=== PATIENT | male | born 1950 | race Caucasian/White ===

== ENCOUNTER 2020-01-07 07:47 | Outpatient (CLI) | payer BC, SELFPAY ==
[2020-01-07 09:21] LABS: Alanine Aminotransferase 18 U/L (4-50); Albumin Level 4.4 g/dL (3.5-5.1); Alkaline Phosphatase 77 U/L (38-126); Aspartate Amino Transferase 20 U/L (17-59); Bilirubin,Total 0.6 mg/dL (0.2-1.3); Blood Urea Nitrogen 15 mg/dL (9-20); Calcium 9.4 mg/dL (8.4-10.2); Carbon Dioxide 29 mmol/L (22-30); Chloride 104 mmol/L (98-107); Cholesterol 105 mg/dL (0-200); Estimated Glomerular Filt Rate > 60; Glucose 110 mg/dL (75-110); HDL Direct 25 mg/dL; Potassium 4.8 mmol/L (3.4-5.0); Sodium 139 mmol/L (137-145); Triglycerides 75 mg/dL (<150)
[2020-01-07 09:33] LABS: LDL Cholesterol Direct 64 mg/dL
[2020-01-07 09:50] LABS: Free T4 Free Thyroxine 1.14 ng/mL (0.78-2.19)
[2020-01-07 09:52] LABS: Prostate Specific Antigen 2.3 ng/mL (< OR = 4.0)
[2020-01-10 05:44] LABS: Homocysteine 13.1 umol/L (<11.4)
[2020-01-12 23:19] LABS: Vitamin D 1,25 (OH)2 Total 34 pg/mL (18-72); Vitamin D2 1,25 (OH)2 <8 pg/mL; Vitamin D3 1,25 (OH)2 34 pg/mL
== END 2020-01-07 07:48 | disposition home or self-care (01) ==
LOC: ANHLAB 07:49
PROVIDERS: PCP Internal Medicine; Visit Provider Internal Medicine
DX: E55.9 Vitamin D deficiency, unspecified (principal); Z12.5 Encounter for screening for malignant neoplasm of prostate; E78.2 Mixed hyperlipidemia; Z79.899 Other long term (current) drug therapy; R79.89 Other specified abnormal findings of blood chemistry
CPT/HCPCS: 36415; 80053; 80061; 82652; 83036; 83090; 84153; 84439; 84443; G0103

== ENCOUNTER → 2020-07-31 10:35 | Outpatient (CLI) | payer BC, SELFPAY ==
--- NOTE | ~2020-07-31 | CT_ITS ---
EXAMINATION:CT lung screening DATE: 07/31/2020 10:46 INDICATION: Personal history of tobacco dependence. Current smoker with 40 pack year history. TECHNIQUE: Computed tomography (CT) of the chest was performed without intravenous contrast. Automate d exposure control and iterative reconstruction technique were employed. The dose-length product (DLP ) was 145.53 mGy-cm. COMPARISON: CT abdomen and pelvis 10/28/09 FINDINGS: There is mild atelectasis bilaterally. Calcified right lung nodules and calcified right hil ar lymph nodes are consistent with old granulomatous disease. No pleural effusion. The heart size is normal. There are coronary artery calcifications. No pericardial effusion. There is bilateral gynecom astia. There is dextroscoliosis and severe spondylosis of thoracic spine. IMPRESSION: 1. Lung-RADS category 1: Negative. Continue annual screening with noncontrast low-dose chest CT in 12 months. Reviewed, dictated and finalized at location B. [employer] IMPRESSION: 1. Lung-RADS category 1: Negative. Continue annual screening with noncontrast l ow-dose chest CT in 12 months.
== END ==
PROVIDERS: PCP Internal Medicine; Visit Provider Internal Medicine
DX: Z12.2 Encounter for screening for malignant neoplasm of respiratory organs (principal); Z87.891 Personal history of nicotine dependence
CPT/HCPCS: 71271

== ENCOUNTER 2020-11-16 11:02 | Emergency (ER) | payer BC, SELFPAY ==
[2020-11-16 11:11] VITALS: BP 146/74; PULSE 72; RESP 16; TEMP 36.9; O2SAT 100
--- NOTE | 2020-11-16 11:41 | ED.URI ---
HPI - URI/Sore Throat General Chief Complaint: Upper Respiratory Infection Stated Complaint: SORE THROAT Time Seen by Provider: 11/16/20 11:25 Source: patient Mode of arrival: ambulatory Limitations: no limitations History of Present Illness HPI Narrative: Kt Humphries is a 70 yo male with high cholesterol, who comes to [facility] with complaints of a sore throat. He had contacted his PCP on Friday and got a call in prescription for cefdinir; he has taken 2 doses and rattling getting better his sore throat is gotten worse. Patient states he was unable to sleep last night and was up because his he is unable to control his saliva is describes the situation as constant spitting has great difficulty swallowing particularly has pain on the left Related Data Home Medications Medication Instructions Recorded Confirmed aspirin 81 mg tablet,delayed 81 mg PO DAILY 08/31/19 11/16/20 release multivitamin 1 tablet PO DAILY 08/31/19 11/16/20 cyanocobalamin (vitamin B-12) 1,000 mcg PO DAILY 01/10/20 11/16/20 1,000 mcg tablet omega-3 fatty acids 1,000 mg 2,000 mg PO BID cap 06/05/20 11/16/20 capsule ferrous sulfate 325 mg (65 mg 325 mg PO DAILY 10/02/20 11/16/20 iron) tablet Allergies Allergy/AdvReac Type Severity Reaction Status Date / Time Penicillins Allergy Hives Verified 11/16/20 11:09 Review of Systems Review of Systems: Narrative: CONSTITUTIONAL: Denies fever, chills, sweats. EYES: Denies visual changes, redness, discharge. ENT: Denies rhinorrhea, congestion, has severe sore throat with drooling, otalgia. CARDIOVASCULAR: Denies chest pain, palpitations, edema. RESPIRATORY: Denies dyspnea, wheezing, cough GASTROINTESTINAL: Denies abdominal pain, nausea, vomiting, diarrhea. GENITOURINARY: Denies dysuria, hematuria, abnormal discharge SKIN: Denies rash or itching. NEUROLOGIC: Denies numbness, or focal weakness. PSYCHIATRIC: Denies anxiety or depression. [facility] Past Medical History Medical History BMI 25.0-25.9,adult Chronic sinusitis Elevated homocysteine Encounter for routine adult health examination without abnormal findings Encounter for special screening examination for neoplasm of prostate Gum disease Mixed hyperlipidemia On exterminator helper termite drug therapy Parathyroid adenoma Personal history of nicotine dependence Prediabetes Tobacco abuse Vitamin D deficiency Surgical History Surgical History History of parathyroid surgery Family History Family History Mother Patient's mother is in good health Father Patient's father is Family history of cardiovascular disease Family history of heart disease in male family member before age 55 Social History Social History Smoking status: Current every day smoker Tobacco type: cigarettes Second hand tobacco smoke exposure: Yes Alcohol intake: current Comments At time of signature, I agree with nursing past medical, surgical, social and family history. There is no relevant family history pertinent to the presenting complaint. Blood pressure is elevated but may be due to current situation is being referred to the ER for assessment of current condition Exam Narrative: Exam Narrative: GENERAL: This is a well-nourished, well-developed patient, in moderate distress. HEAD: normocephalic, atraumatic. EYES:Sclera clear/white. Vision is grossly intact. EARS: External ears normal, . Hearing grossly intact. NOSE: External nose normal without nasal discharge, nares without redness, no rhinorrhea. THROAT: Mucous membranes moist, posterior pharynx erythema, left side appears more swollen than right, point tenderness submandibular and along left pharynx, voice sounds gravelly, patient has isolated mouth states he cannot swallow and has d
== END 2020-11-16 11:45 | disposition short-term general hospital (02) ==
PROVIDERS: Emergency Provider Nurse Practitioner; PCP Internal Medicine
DX: J02.9 Acute pharyngitis, unspecified (principal); F17.210 Nicotine dependence, cigarettes, uncomplicated; E78.2 Mixed hyperlipidemia; R73.03 Prediabetes; Z79.82 Long term (current) use of aspirin
CPT/HCPCS: 99212; G0463

== ENCOUNTER 2020-11-16 12:02 | Emergency (ER) | payer BC, SELFPAY ==
--- NOTE | ~2020-11-16 | XR_ITS ---
EXAMINATION: XR chest 2V DATE: 11/16/2020 14:00 INDICATION: Cough, tobacco use TECHNIQUE: PA and lateral views of the chest are obtained. COMPARISON: 08/21/2017 FINDINGS: The lungs are free of acute opacities. Calcified pulmonary nodules are consistent with old granulomatous disease. There is no pleural effusion or pneumothorax. The cardiomediastinal silhouette is normal. There is moderate thoracic spondylosis. Thoracic dextrocurvature is noted. IMPRESSION: 1. No acute cardiopulmonary abnormality. Of note, the patient is due for low-dose lung cancer screeni ng CT. Reviewed, dictated and finalized at location A. IMPRESSION: 1. No acute cardiopulmonary abnormality. Of note, the patient is due for low-do se lung cancer screening CT.
[2020-11-16 12:04] VITALS: BP 150/75; PULSE 73; RESP 18; TEMP 36.4; O2SAT 99
[2020-11-16] MEDS: SODIUM CHLORIDE 0.9% IV 1,000 ML 999 ML IV CONT (13:01)
[2020-11-16 14:20] VITALS: BP 148/76; PULSE 78; RESP 16; O2SAT 98
--- NOTE | 2020-11-16 15:20 | ED.GENADULT ---
HPI - General Adult General Chief complaint: Unspecified Stated complaint: ST Time Seen by Provider: 11/16/20 12:31 Source: patient, family and RN notes reviewed Mode of arrival: ambulatory Limitations: no limitations History of Present Illness HPI narrative: Patient is a 70-year-old male who presents to emergency department for evaluation of sore throat that has been present for 2 days with congestion rhinorrhea his physician started him on antibiotics which she has taken for 1 day patient was seen at urgent care and referred to emergency department for further evaluation patient notes aching pain of the throat made worse with swallowing patient notes that he is able to tolerate p.o. intake and does not have difficulty swallowing only due to pain he has not taken anything for his pain today on arrival is in no distress patient notes he also has a cough but it is chronic in nature Related Data Allergies Allergy/AdvReac Type Severity Reaction Status Date / Time No Known Allergies Allergy Verified 11/16/20 12:08 Review of Systems Review of Systems: All systems reviewed & are unremarkable except as noted in HPI and below PMFSH Social History Social History (Updated 11/16/20 @ 15:21 by Everett Vela PA-C) Smoking status: Never smoker Exam Narrative: Exam Narrative: GENERAL: Well-appearing, well-nourished, and in no acute distress. HEAD: Normocephalic, atraumatic. EYES: PERRLA and EOMI. ENT: Nares clear, no rhinorrhea or epistaxis. Mucous membranes moist. Oropharynx with erythema and without tonsillar hypertrophy exudate or other lesions. Bilateral TMs pearly mares nonbulging. Uvula midline no trismus or drooling NECK: Supple. No adenopathy or masses. No stridor CHEST: Clear to auscultation. No respiratory distress. No wheezes rales or rhonchi HEART: Regular rate and rhythm. No murmur heard. EXTREMITIES: Normal range of motion. No edema. SKIN: Warm, dry, no rash. NEURO: No focal deficits. Alert and oriented x3. PSYCH: Normal mood and affect. Course Course Emergency Course: Patient in the room no distress aware of case findings treatment plan and diagnosis was hydrated and given medications in the emergency department feels much better at this time felt appropriate for outpatient reevaluation patient will follow up as instructed and notes that he will return if symptoms worsen or concerns he is afebrile nontoxic-appearing in no distress Consultations Consultation #1: Discussed case with primary care who will follow the in clinic and is aware of the chest x-ray findings Date: 11/16/20 Time: 15:22 Vital Signs Vital signs: Vital Signs Temperature 97.6 F 11/16/20 12:04 Pulse Rate 73 11/16/20 12:04 Respiratory Rate 18 11/16/20 12:04 Blood Pressure 150/75 H 11/16/20 12:04 Pulse Oximetry 99 11/16/20 12:04 Temperature 97.6 F 11/16/20 12:04 Pulse Rate 78 11/16/20 14:20 Respiratory Rate 16 11/16/20 14:20 Blood Pressure 148/76 H 11/16/20 14:20 Pulse Oximetry 98 11/16/20 14:20 Medical Decision Making MDM Narrative Medical decision making narrative: Patient presenting with strep pharyngitis. There are no focal signs of space occupying lesions that are compromising to the ariway. The floor of the mouth is soft with no signs of Ludwigs Angina. Patient is without trismus or drooling and able to swallow secreations. Patient is felt appropriate for discharge home with primary care follow up. Vital Signs Vital Signs: Vital Signs Temperature 97.6 F 11/16/20 12:04 Pulse Rate 73 11/16/20 12:04 Respiratory Rate 18 11/16/20 12:04 Blood Pressure 150/75 H 11/16/20 12:04 Pulse Oximetry 99 11/16/20 12:04 Temperature 97.6 F 11/16/20 12:04 Pulse Rate 78 11/16/20 14:20 Respiratory Rate 16 11/16/20 14:20 Blood Pressure 148/76 H 11/16/20 14:20 Pulse Oximetry 98 11/16/20 14:20 Lab Data Labs: Strep Screen Positive Group A Strep
== END 2020-11-16 15:37 | disposition home or self-care (01) ==
PROVIDERS: Emergency Provider Emergency Medicine; PCP Internal Medicine
DX: J02.0 Streptococcal pharyngitis (principal)
CPT/HCPCS: 71046; 87880; 96365; 96375; 99284; J0131; J1100; J7030